=== PATIENT | male | born 1985 | race Caucasian/White ===

== ENCOUNTER 2020-05-17 11:24 | Emergency (ER) | payer OTHER ==
[~2020-05-17] VITALS: Ht 175.3 cm; Wt 74.5 kg
[2020-05-17 11:33] VITALS: BP 133/71
--- NOTE | 2020-05-17 11:36 | PHYS DOC ---
General Adult EDM: Chief Complaint: ANKLE PROBLEM HPI: HPI: History obtained from patient. Patient is a 34-year-old male with no past medical history who presents with chief complaint of left lateral ankle pain. He states 1 hour prior to arrival he was jogging with a pack on. He states that he twisted his ankle. He describes an inversion injury. He noted immediate pain and swelling just below the left lateral malleolus. Denies any bony tenderness. Is able to ambulate although it does make the pain worse. Has not tried any medication prior to arrival. Notes moderate swelling over the area. Denies knee pain. Denies falling or hitting his head. No other complaints. States pain is aching and constant. Review of Systems: Review of Systems: Constitutional: Denies fever or chills Eyes: Denies change in visual acuity HENT: Denies nasal congestion or sore throat Respiratory: Denies cough or shortness of breath Cardiovascular: Denies chest pain or edema GI: Denies abdominal pain, nausea, vomiting, bloody stools or diarrhea : Denies dysuria Musculoskeletal: Positive for ankle pain Integument: Denies rash Neurologic: Denies headache, focal weakness or sensory changes Endocrine: Denies polyuria or polydipsia Lymphatic: Denies swollen glands Psychiatric: Denies depression or anxiety Allergies: Allergies: Allergies Coded Allergies Type Severity Reaction Last Updated Verified No Known Drug Allergies 05/17/20 No Physical Exam: PE: Constitutional: Well developed, well nourished, no acute distress, non-toxic appearance. [] HENT: Normocephalic, atraumatic, bilateral external ears normal, oropharynx moist, no oral exudates, nose normal. [] Eyes: PERRLA, EOMI, conjunctiva normal, no discharge. [] Neck: Normal range of motion, no tenderness, supple, no stridor. [] Cardiovascular:Heart rate regular rhythm, no murmur [] Lungs & Thorax: Bilateral breath sounds clear to auscultation [] Abdomen: soft, no tenderness, no masses, no pulsatile masses. [] Skin: Warm, dry, no erythema, no rash. [] Back: No tenderness, no CVA tenderness. [] Extremities: L KNEE/ANKLE/FOOT: Focal tenderness to palpation just distal to the left lateral malleolus. Moderate overlying swelling noted. Tissue compartments are soft. Distal pulses are 2+. Knee extension is intact. Plantar flexion is intact. Proximal fibula is not tender to palpation. Medial malleolus is not tender to palpation. Lateral malleolus is not tender to palpation. 5th metatarsal head is not tender to palpation. There is no obvious deformity. Passive ROM is reduced due to pain. Active ROM is reduced due to pain. Neurologic: Alert and oriented X 3, normal motor function, normal sensory function, no focal deficits noted. [] Psychologic: Affect normal, judgement normal, mood normal. [] EKG: EKG: [] Radiology/Procedures: Radiology/Procedures: [address] [id number] IMAGING REPORT Signed PATIENT: THOMAS GRANT ACCOUNT: [id number] : 1985 LOCATION: ER AGE: 34 SEX: M EXAM STATUS: REG ER ORD. PHYSICIAN: AMALIA MARIE DO REASON: left lateral ankle pain and swelling PROCEDURE: ANKLE LEFT 3V Left ankle 3 views. HISTORY: Left ankle pain and swelling 3 views were taken of the left ankle. There is a tiny density at the tip of the lateral malleolus which could be a tiny avulsion. There is not other evidence of an acute fracture or osseous abnormality. There is soft tissue swelling. IMPRESSION: 1. Possible tiny avulsion. 2. No other fracture noted. Electronically signed by: Cedric Loco MD (05/17/2020 11:42 AM) [facility] DICTATED AND SIGNED BY: CEDRIC LOCO MD DATE: 05/17/20 1142 CC: NON,STAFF; AMALIA MARIE DO ~MTH0 0 [] Heart Score: Risk Factors: Risk Factors: DM, Current or recent (<one month) smoker, HTN, HLP, family history of CAD, obesity. Risk Scores: Score 0 - 3: 2.5% MACE over next 6 weeks - Discharge Home Score 4 - 6: 20.3% MACE over next 6 weeks - Admit for Clinical Observation Score 7 - 10: 72.7% MACE over next 6 weeks - Early Invasive Strategies Course & Med Decision Making: Course & Med Decision Making Pertinent Labs and Imaging studies reviewed. (See chart for details) [] Patient is a very pleasant 34-year-old male who presents with chief complaint of left ankle injury. Exam noted above. Plain film imaging reads no obvious radiographic evidence of fracture. He likely experienced ligamentous sprain. He will be placed in an Aircast. He was encouraged to use [id number] anti-inflammatories for relief. RICE precautions given. Instructed to follow- up with his primary care physician in the next 2 to 3 days. Return precautions discussed and understood. Stable for discharge home. Rj Disclaimer: Rj Disclaimer: This electronic medical record was generated, in whole or in part, using a voice recognition dictation system. Departure Departure: Impression: Primary Impression: Left ankle injury Qualified Codes: S99.912A - Unspecified injury of left ankle, initial encounter Disposition: 01 DC HOME SELF CARE/HOMELESS Condition: STABLE Patient Instructions: Ankle Sprain Scripts Ibuprofen (IBUPROFEN) 200 Mg Tablet 600 MG PO QIDPRN PRN for PAIN, #15 TAB Prov: AMALIA MARIE DO 05/17/20 AMALIA MARIE DO May 17, 2020 11:36
[2020-05-17] MEDS ORDERED: IBUP-1673 PO (11:42)
--- NOTE | 2020-05-17 11:45 | RAD ---
Left ankle 3 views. HISTORY: Left ankle pain and swelling 3 views were taken of the left ankle. There is a tiny density at the tip of the lateral malleolus which could be a tiny avulsion. There is not other evidence of an acute fracture or osseous abnormality. There is soft tissue swelling. IMPRESSION: 1. Possible tiny avulsion. 2. No other fracture noted. Electronically signed by: Cedric Flynn MD (05/17/2020 11:42 AM) [facility]
== END 2020-05-17 11:47 | disposition home or self-care (01) ==
LOC: ER 11:42
DX: S99.912A Unspecified injury of left ankle, initial encounter (principal); X50.9XXA Other and unspecified overexertion or strenuous movements or postures, initial encounter; Y93.89 Activity, other specified; Y92.89 Other specified places as the place of occurrence of the external cause; Y99.8 Other external cause status
CPT/HCPCS: 73610; 99283; L4350